=== PATIENT | female | born 1940 | race Caucasian/White ===

== ENCOUNTER 2018-05-09 15:24 | Inpatient (IN) ==
[2018-05-09] MEDS ORDERED: hydroCHLOROthiazide 25 MG TABLET PO STA (17:50)
[2018-05-09 18:58] LABS: Basophils # 0.1 10*3/uL (0.0-0.2); Basophils % 1.3 % (0.0-0.8); Eosinophils # 0.4 10*3/uL (0.0-0.87); Eosinophils % 5.7 % (0.00-10.9); Hematocrit 39.2 VOL% (35.7-47.0); Hemoglobin 12.8 GM/DL (12.0-16.0); Immature Granulocytes % 0.2 %; Immature Granulocytes Absolute 0.01 #; Lymphocytes # 2.7 10*3/uL (1.4-4.0); Lymphocytes % 43.8 % (21.3-54.2); Mean Corpuscular HGB Conc 32.7 GM/DL (32-36); Mean Corpuscular Hemoglobin 31 PG (27-34); Mean Corpuscular Volume 93.8 FL (87-102); Mean Platelet Volume 9.9 FL (9.6-12.0); Monocytes # 0.5 10*3/uL (0.11-0.8); Monocytes % 7.3 % (1.7-12.7); Neutrophils # 2.6 10*3/uL (1.4-7.4); Neutrophils % 41.7 % (38.7-73.9); Platelet Count 215 T/CUMM (130-400); Red Blood Count 4.18 MC/CUMM (3.8-5.5); Red Cell Distribution Width 12.7 % (9.3-17.3); White Blood Count 6.1 T/CUMM (4-12)
[2018-05-09 19:19] LABS: Apearance,Urine CLEAR (Clear); Bacteria,Urine Occasional /HPF (Few); Bilirubin,Urine Negative (Negative); Blood, Urine Negative (Negative); Glucose,Urine (UA) Negative (Negative); Ketones,Urine Negative (Negative); Nitrite,Urine Negative (Negative); Protein,Urine Negative; RBC,Urine 1 /HPF (0-4); Urine Color Straw (Yellow); Urine Specific Gravity 1.008 (1.001-1.035); Urine Urobilinogen < 2.0 EU/DL (0.2-1.0); WBC,Urine <1 /HPF (0-6)
[2018-05-09 20:13] LABS: INR 1.9; PT Patient Result 20.1 SECS; Partial Thromboplastin Time 31.8 SECS (0-40)
[2018-05-09] MEDS ORDERED: FUROSEMIDE 40 MG/4 ML VIAL IV STA (20:27)
[2018-05-09] MEDS ORDERED: hydrALAZINE 20 MG/1 ML VIAL IV PRN (20:42)
[2018-05-09] MEDS ORDERED: ACETAMINOPHEN 325 MG TABLET PO PRN (20:42)
[2018-05-09] MEDS ORDERED: ONDANSETRON 4 MG/2 ML VIAL IV PRN (20:42)
[2018-05-09] MEDS ORDERED: POTASSIUM CHLORIDE 20 MEQ TABLET PO PRN (20:47)
[2018-05-09 21:03] LABS: Albumin 3.3 G/DL (3.4-5.0); Bilirubin,Total 0.5 MG/DL (0.2-1.0); Calcium 9.4 MG/DL (8.5-10.1); Osmolality,Calculated 280.4 MOS/KG (273-304); Potassium 4.3 MMOL/L (3.5-5.1); Thyroid Stimulating Hormone 1.72 uIU/ml (0.358-3.74)
[2018-05-10 06:23] LABS: INR 1.8; PT Patient Result 19.9 SECS
[2018-05-10 06:45] LABS: Calcium 9.5 MG/DL (8.5-10.1); Osmolality,Calculated 284.1 MOS/KG (273-304); Risk Ratio 3.4
[2018-05-10] MEDS ORDERED: amLODIPine 10 MG TABLET PO SCH (09:00)
[2018-05-10] MEDS: FUROSEMIDE 40 MG/4 ML VIAL IV SCH ×2 (09:11→16:59)
[2018-05-10] MEDS: PANTOPRAZOLE 40 MG TABLET PO SCH (09:11)
[2018-05-10] MEDS: LOSARTAN 50 MG TABLET PO SCH (09:12)
[2018-05-10 17:31] LABS: Calcium 9.8 MG/DL (8.5-10.1); Osmolality,Calculated 282.5 MOS/KG (273-304); Potassium 3.8 MMOL/L (3.5-5.1)
[2018-05-10] MEDS ORDERED: MAGNESIUM SULF RIDER 4 GM in PREMIX 1 EACH IV PRN (17:48)
[2018-05-10] MEDS ORDERED: MAGNESIUM SULF RIDER 2 GM in PREMIX 1 EACH IV PRN (17:48)
[2018-05-10] MEDS ORDERED: MAGNESIUM SULF RIDER 50 ML IV ONE (17:52)
[2018-05-10] MEDS ORDERED: WARFARIN 5 MG TABLET PO SCH (18:00)
[2018-05-10] MEDS ORDERED: ATORVASTATIN 40 MG TABLET PO SCH (21:00)
[2018-05-10] MEDS ORDERED: TEMAZEPAM 15 MG CAPSULE PO SCH (21:00)
[2018-05-10] MEDS ORDERED: hydrALAZINE 25 MG TABLET PO SCH (21:00)
[2018-05-10] MEDS: OMEGA 3 ACID ETHYL ESTERS 1 GM CAPSULE PO SCH (22:30)
[2018-05-10] MEDS: POTASSIUM CHLORIDE 10 MEQ TABLET PO SCH (22:30)
[2018-05-10] MEDS: hydrALAZINE 25 MG TABLET PO SCH (22:31)
[2018-05-11 04:24] LABS: INR 1.6; PT Patient Result 16.9 SECS
[2018-05-11 04:35] LABS: Calcium 9.2 MG/DL (8.5-10.1); Osmolality,Calculated 284.5 MOS/KG (273-304)
[2018-05-11] MEDS ORDERED: EZETIMIBE 10 MG TABLET PO SCH (09:00)
[2018-05-11] MEDS ORDERED: CETIRIZINE 10 MG TABLET PO SCH (09:00)
[2018-05-11] MEDS: PANTOPRAZOLE 40 MG TABLET PO SCH (09:49)
[2018-05-11] MEDS: POTASSIUM CHLORIDE 10 MEQ TABLET PO SCH (09:49)
[2018-05-11] MEDS: hydrALAZINE 25 MG TABLET PO SCH ×2 (09:49→15:02)
[2018-05-11] MEDS: OMEGA 3 ACID ETHYL ESTERS 1 GM CAPSULE PO SCH (09:49)
[2018-05-11] MEDS: LOSARTAN 50 MG TABLET PO SCH (09:49)
[2018-05-11] MEDS: FUROSEMIDE 40 MG/4 ML VIAL IV SCH (09:53)
[2018-05-11 13:08] VITALS: BP 141/66
[2018-05-11] MEDS ORDERED: WARFARIN 5 MG TABLET PO SCH (18:00)
[2018-05-11] MEDS ORDERED: WARFARIN 4 MG TABLET PO SCH (18:00)
== END 2018-05-11 15:44 | disposition home or self-care (01) | DRG 300 ==
LOC: N.ED 15:24 → N.TELES 20:39 → N.EDINP 20:39 → N.TELES 22:17
PROVIDERS: ADMIT Internal Medicine Cardiovascular Disease; ATTEND Internal Medicine Cardiovascular Disease